=== PATIENT | female | born 1965 | race Caucasian/White ===

== ENCOUNTER → 2020-10-30 | Outpatient (CLI) | payer OTHER ==
--- NOTE | 2020-10-30 10:36 | RAD ---
EXAMINATION: US US ABDOMEN COMPLETE CLINICAL HISTORY: Postprandial abdominal pain TECHNIQUE: Grayscale sonographic imaging of the abdomen obtained with color Doppler imaging and spect ral Doppler analysis as indicated. COMPARISON: None FINDINGS: Pancreas: Pancreatic head unremarkable on limited evaluation. - Portions obscured: Body and tail Liver: - Echotexture: Normal, homogeneous. - Echogenicity: Near diffusely increased with small lobular focus of hypoechogenicity in the gallblad natan fossa, compatible with steatosis and focal fatty sparing. - Surface contour: Smooth - Lesions: None Biliary: No intrahepatic biliary duct dilation. - CBD: 3 mm at the hilum. - Gallbladder: Normal caliber - Contents: No cholelithiasis - Wall: Normal - Other: No definite pericholecystic fluid. Positive sonographic Bose's sign. Spleen: - Craniocaudal length: 11.1 cm. - Lesions: Multiple small nonshadowing hyperechogenicities in the spleen, suggestive of old calcified granulomas. Right Kidney: - Renal length: 10.2 cm - Parenchyma: Normal parenchymal echogenicity. Normal parenchymal thickness. - Collecting system: No hydronephrosis. - Calculus: No echogenic, shadowing calculus. - Lesion: None Left Kidney: - Renal length: 3.5 cm - Parenchyma: Normal parenchymal echogenicity. Normal parenchymal thickness. - Collecting system: No hydronephrosis. - Calculus: No echogenic, shadowing calculus. - Lesion: Questionable masslike isoechoic lesion in the midpole of the left kidney measuring up to 3. 8 x 2.7 cm. IVC: Poorly visualized. Abdominal Aorta: Poorly visualized. Ascites: None. IMPRESSION: Positive sonographic Bose's sign with otherwise no evidence of cholecystitis. No cholelithiasis. Findings compatible with hepatic steatosis. Questionable masslike isoechoic lesion in the midpole the left kidney, possibly a hypertrophied colum n of Franco but renal mass is not entirely excluded. Consider renal protocol CT or MRI for further ev aluation as indicated. Electronically signed by: Kamar Goodrich DO (10/30/2020 10:34 AM) [id number]
== END ==
LOC: US 09:31
PROVIDERS: ATTEND Nurse Practitioner Family
DX: R10.9 Unspecified abdominal pain (principal)
CPT/HCPCS: 76700